=== PATIENT | female | born 1965 ===

== ENCOUNTER 2023-07-28 06:34 | Observation (INO) ==
[2023-07-28] MEDS ORDERED: ceFAZolin 2 GM in NS PREMIX 2 GM/100 ML BAG IVPB ONE ×2 (07:17→15:12)
[2023-07-28] MEDS ORDERED: Heparin 5000 UNITS/ML 1 mL VIAL ONE ×2 (07:17→15:19)
[2023-07-28] MEDS ORDERED: Lidocaine 4% CREAM (LMX) 5 GM TUBE TOPICAL ONE (07:17)
[2023-07-28] MEDS ORDERED: fentaNYL 100 mcg/2 ml 50 MCG/ML VIAL IV PRN (07:22)
[2023-07-28] MEDS ORDERED: Metoclopramide 5 MG/ML VIAL (10 mg) IV PRN (07:22)
[2023-07-28] MEDS ORDERED: Naloxone 0.4 mg VIAL 0.4 mg/ml 1 ml VIAL IV PRN (07:22)
[2023-07-28] MEDS ORDERED: Ondansetron 4 mg VIAL 2 MG/ML 2 ml VIAL IV PRN (07:22)
[2023-07-28 07:49] LABS: Rapid COVID-19 Molecular Undetected (Undetected)
[2023-07-28] MEDS ORDERED: Ondansetron 4 mg VIAL 2 MG/ML 2 ml VIAL ONE (08:57)
[2023-07-28] MEDS ORDERED: Propofol 10 MG/ML 20 ML BTL ONE (08:57)
[2023-07-28] MEDS ORDERED: Rocuronium 50 mg VIAL 10 mg/ml 5 ml VIAL (50 mg) ONE ×4 (08:57→11:43)
[2023-07-28] MEDS ORDERED: fentaNYL 100 mcg/2 ml 50 MCG/ML VIAL ONE (08:57)
[2023-07-28] MEDS ORDERED: Dexamethasone IV 4 MG/ML VIAL 1 ml VIAL ONE (08:57)
[2023-07-28] MEDS ORDERED: Sevoflurane BOTTLE ONE (08:57)
[2023-07-28] MEDS ORDERED: Succinylcholine 200 mg VIAL 20 mg/ml 10 ml VIAL (200 mg) ONE (08:57)
[2023-07-28] MEDS ORDERED: Midazolam 2 mg/2 ml VIAL 1 mg/ml 2 ml VIAL (2 mg) ONE (08:58)
[2023-07-28] MEDS ORDERED: Bupivacaine 0.5% SDV PF 30ML VIAL ONE (09:51)
[2023-07-28] MEDS ORDERED: ISOSULFAN BLUE 1% 5 ML VIAL 10 MG/ML SUBCUT ONE (09:51)
[2023-07-28] MEDS ORDERED: fentaNYL 250 mcg/5 ml 50 MCG/ML 5 ml VIAL (250 MCG) ONE ×2 (11:36→13:41)
[2023-07-28] MEDS ORDERED: Scopolamine 1 mg/72hr PATCH ONE (13:02)
[2023-07-28] MEDS ORDERED: ceFAZolin 1 GM ADVAN 1 GM ADDV.VIAL IVPB ONE (15:08)
[2023-07-28] MEDS ORDERED: Morphine 2 MG/ML SYRINGE IV PRN (17:12)
[2023-07-28] MEDS ORDERED: Cyclobenzaprine 5 mg TAB (NF) PO PRN (17:12)
[2023-07-28] MEDS ORDERED: Benzocaine/Menthol LOZ PO PRN (17:12)
[2023-07-28] MEDS ORDERED: HYDROcodone/ACETAMIN 5/325 mg TAB PO PRN ×2 (17:12)
[2023-07-28] MEDS: Lactated Ringers 1000 ml BAG 1,000 ML IV SCH (18:27)
[2023-07-28] MEDS: Buffered Lidocaine 1% SYRIN 1 ml INTRADERM ONE (18:27)
[2023-07-28] MEDS: Scopolamine 1 mg/72hr PATCH TRANSDERM ONE (18:27)
[2023-07-28] MEDS: Heparin 5000 UNITS/ML 1 mL VIAL SUBCUT SCH (21:26)
[2023-07-29] MEDS: ceFAZolin 2 GM PREMIX 2 GM/50 ML BAG IV SCH ×2 (01:17→09:23)
[2023-07-30 14:36] VITALS: BP 110/59
== END 2023-07-30 15:19 | disposition home or self-care (01) ==
LOC: AA 06:34 → INTOOBSV 06:34 → SSU 16:57
PROVIDERS: ADMIT Student in an Organized Health Care Education/Training Program; ATTEND Student in an Organized Health Care Education/Training Program